=== PATIENT | female | born 1975 | race Caucasian/White ===

== ENCOUNTER → 2021-10-16 | Outpatient (CLI) | payer OTHER | LOC: KOH-I 10:35 | DX: M25.551 Pain in right hip (principal) | CPT/HCPCS: 73502 ==

== ENCOUNTER → 2021-10-18 | Outpatient (CLI) | payer OTHER | LOC: KOH-I 08:15 | DX: M25.551 Pain in right hip (principal) | CPT/HCPCS: 73721 ==

== ENCOUNTER → 2022-04-08 | Outpatient (CLI) | payer OTHER | LOC: KOH-I 15:51 | DX: E04.2 Nontoxic multinodular goiter (principal) | CPT/HCPCS: 76536 ==